=== PATIENT | female | born 1980 | race Caucasian/White ===

== ENCOUNTER 2017-08-26 19:04 | Inpatient (IN) | payer OTHER ==
[~2017-08-26] VITALS: Ht 157.5 cm; Wt 70.8 kg
[2017-08-26] MEDS ORDERED: PREN1TAB80 PO (20:34)
[2017-08-26] MEDS ORDERED: [UNRECOGNIZED DRUG - CODE] PO (20:34)
[2017-08-26 20:41] VITALS: BP 139/84
[2017-08-26] MEDS ORDERED: RINGERS SOLUTION,LACTATED 1,000 ML IV SCH (21:45)
[2017-08-26] MEDS: RINGERS SOLUTION,LACTATED 1,000 ML IV SCH ×2 (21:58→23:27)
[2017-08-27] MEDS ORDERED: METHYLDOPA 250 MG TABLET PO ONE (09:15)
[2017-08-27] MEDS ORDERED: RINGERS SOLUTION,LACTATED 1,000 ML IV PRN (11:09)
[2017-08-27] MEDS ORDERED: OXYTOCIN 30 UNITS/LACT RINGERS 500 ML IV PRN (11:09)
[2017-08-27] MEDS ORDERED: RINGERS SOLUTION,LACTATED 1,000 ML IV SCH (11:09)
[2017-08-27] MEDS ORDERED: FentaNYL CITRATE-PF 100 MCG/2 ML VIAL IVP PRN (11:15)
[2017-08-27] MEDS ORDERED: CITRIC ACID/SODIUM CITRATE 30 ML SOLUTION UDCUP PO PRN (11:15)
[2017-08-27] MEDS ORDERED: METOCLOPRAMIDE HCL 5 MG/ML 2 ML VIAL IVP PRN (11:15)
[2017-08-27 11:41] LABS: BASOPHILS % (AUTO) 0.4 % (0.0-2.0); EOSINOPHILS % (AUTO) 1.1 % (1.0-6.0); HEMATOCRIT 29.2 % (36-46); HEMOGLOBIN 10.1 g/dL (12.0-16.0); LYMPHOCYTES # (AUTO) 1.5 K/uL (1.0-4.8); LYMPHOCYTES % (AUTO) 15.5 % (22.0-44.0); MEAN CORPUSCULAR HGB CONC 34.4 G/dL (31.0-37.0); MEAN CORPUSCULAR VOLUME 93 fL (80-100); MONOCYTES # (AUTO) 0.8 K/uL (0.1-1.0); MONOCYTES % (AUTO) 7.8 % (2.0-9.0); NEUTROPHILS # (AUTO) 7.5 K/uL (1.8-7.7); NEUTROPHILS % (AUTO) 75.2 % (40.0-70.0); PLATELET COUNT (AUTO)-OB 287 K/uL (150-450); RED BLOOD CELL COUNT(AUTO) 3.14 MIL/uL (4.00-5.20); RED CELL DISTRIBUTION WIDTH 14.9 % (11.5-14.5)
[2017-08-27] MEDS ORDERED: INFLUENZA VIRUS VACCINE QVS 2017-18 (3YR+)/PF 60 MCG/0.5 ML SYRINGE IM ONE (12:15)
[2017-08-27] MEDS ORDERED: LIDOCAINE HCL 2%/EPI 1:200,000/PF 20 ML VIAL ONE (14:51)
[2017-08-27] MEDS ORDERED: ROPIVACAINE HCL 0.2% 100 ML ED ONE (14:51)
[2017-08-27] MEDS ORDERED: ROPIVACAINE HCL 0.2% 100 ML ED PRN (15:13)
[2017-08-27] MEDS ORDERED: NALBUPHINE HCL 10 MG/ML VIAL IVP PRN (15:15)
[2017-08-27] MEDS ORDERED: DiphenhydrAMINE HCL 50 MG/ML VIAL IVP PRN (15:15)
[2017-08-27] MEDS ORDERED: ONDANSETRON HCL 4 MG/2 ML VIAL IVP PRN (15:15)
[2017-08-27] MEDS ORDERED: DiphenhydrAMINE HCL 50 MG/ML VIAL IM PRN (15:15)
[2017-08-27] MEDS ORDERED: OXYGEN THERAPY IH SCH (20:00)
[2017-08-27] MEDS ORDERED: LANOLIN 7 GM OINTMENT TP PRN (20:15)
[2017-08-27] MEDS ORDERED: GLYCERIN/WITCH HAZEL LEAF 40 PADS JAR TP PRN (20:15)
[2017-08-27] MEDS ORDERED: ACETAMINOPHEN/CODEINE 300-30 MG TABLET PO PRN ×2 (20:15)
[2017-08-27] MEDS ORDERED: BENZOCAINE 20%/MENTHOL 56 GM SPRAY CANISTER TP PRN (20:15)
[2017-08-27] MEDS ORDERED: METHYLERGONOVINE MALEATE 0.2 MG/ML VIAL IM ONE (20:15)
[2017-08-27] MEDS ORDERED: OXYTOCIN 20 UNITS/LACT RINGERS 1,000 ML IV ONE (20:15)
[2017-08-27] MEDS: MAGNESIUM HYDROXIDE SUSPENSION 30 ML UDCUP PO SCH (21:40)
[2017-08-27] MEDS: IBUPROFEN 800 MG TABLET PO SCH (21:40)
[2017-08-28] MEDS: IBUPROFEN 800 MG TABLET PO SCH ×3 (05:31→17:18)
[2017-08-28 06:13] LABS: BASOPHILS % (AUTO) 0.3 % (0.0-2.0); EOSINOPHILS % (AUTO) 0.9 % (1.0-6.0); HEMATOCRIT 23.7 % (36-46); HEMOGLOBIN 8.4 g/dL (12.0-16.0); LYMPHOCYTES # (AUTO) 1.8 K/uL (1.0-4.8); LYMPHOCYTES % (AUTO) 13.8 % (22.0-44.0); MEAN CORPUSCULAR HEMOGLOBIN 32.8 pg (26.0-34.0); MEAN CORPUSCULAR HGB CONC 35.3 G/dL (31.0-37.0); MEAN CORPUSCULAR VOLUME 93 fL (80-100); MONOCYTES # (AUTO) 1.2 K/uL (0.1-1.0); MONOCYTES % (AUTO) 9.2 % (2.0-9.0); NEUTROPHILS # (AUTO) 9.7 K/uL (1.8-7.7); NEUTROPHILS % (AUTO) 75.8 % (40.0-70.0); PLATELET COUNT (AUTO)-OB 279 K/uL (150-450); RED BLOOD CELL COUNT(AUTO) 2.55 MIL/uL (4.00-5.20); RED CELL DISTRIBUTION WIDTH 14.8 % (11.5-14.5)
[2017-08-28] MEDS ORDERED: METHYLDOPA 250 MG TABLET PO SCH (09:00)
[2017-08-28] MEDS: MAGNESIUM HYDROXIDE SUSPENSION 30 ML UDCUP PO SCH (09:14)
[2017-08-28] MEDS ORDERED: IBUP-2070 PO (10:19)
[2017-08-28] MEDS ORDERED: DSS100 PO (10:20)
[2017-08-28] MEDS ORDERED: FERR-89 PO (10:21)
[2017-08-28 14:59] VITALS: BP 108/60
== END 2017-08-28 20:15 | disposition home or self-care (01) | DRG 775 ==
LOC: OBSVTOIN 19:04 → 4S 19:04
PROVIDERS: ADMIT Obstetrics & Gynecology; ATTEND Obstetrics & Gynecology
PROC: 10E0XZZ Delivery of Products of Conception, External Approach (ICD-10-PCS; principal; 2017-08-27)
PROC: 0HQ9XZZ Repair Perineum Skin, External Approach (ICD-10-PCS; 2017-08-27)
PROC: 3E0S3BZ Introduction of Anesthetic Agent into Epidural Space, Percutaneous Approach (ICD-10-PCS; 2017-08-27)
PROC: 00HU33Z Insertion of Infusion Device into Spinal Canal, Percutaneous Approach (ICD-10-PCS; 2017-08-27)
DX: O77.0 Labor and delivery complicated by meconium in amniotic fluid (principal); O70.0 First degree perineal laceration during delivery; Z37.0 Single live birth; Z3A.38 38 weeks gestation of pregnancy
CPT/HCPCS: 85461; 86850; 86870; 86900; 86901; J2210; J2590; J2795; J7120